=== PATIENT | female | born 1995 | race Caucasian/White ===

== ENCOUNTER 2018-02-08 13:38 | Emergency (ER) | payer MEDICAID ==
[~2018-02-08] VITALS: Ht 162.6 cm; Wt 74.4 kg
[2018-02-08 13:48] VITALS: BP 110/84; Ht 162.6 cm; Wt 74.4 kg
== END 2018-02-08 14:21 | disposition home or self-care (01) ==
LOC: ED 13:38
DX: L02.234 Carbuncle of groin (principal)